=== PATIENT | female | born 1960 | race Caucasian/White ===

== ENCOUNTER 2023-05-30 17:04 | Observation (INO) | payer OTHER ==
[2023-05-30] MEDS ORDERED: Sodium Chloride 0.9% 10 ML Syringe FLUSH PRN (17:22)
[2023-05-30] MEDS ORDERED: Ondansetron 4 MG/2 ML SDV IVPUSH ONE (17:35)
[2023-05-30] MEDS ORDERED: LORazepam 2 MG/ML SDV IVPUSH ONE (17:35)
[2023-05-30 17:45] LABS: BASOPHILS ABSOLUTE AUTO 0.1 x10-3/uL (0.0-0.1); BASOPHILS PERCENT AUTO 0.9 % (0.2-1.5); EOSINOPHILS ABSOLUTE AUTO 0.8 x10-3/uL (0.0-0.8); EOSINOPHILS PERCENT AUTO 8.8 % (0.6-8.1); HEMATOCRIT 41.1 % (34.2-48.2); HEMOGLOBIN 13.8 g/dL (11.4-15.5); LYMPHOCYTES ABSOLUTE AUTO 3.1 x10-3/uL (1.0-4.4); LYMPHOCYTES PERCENT AUTO 33.8 % (18.4-52.1); MEAN CORPUSCULAR HEMOGLOBIN 31.6 pg (23.9-33.9); MEAN CORPUSCULAR HGB CONC 33.6 g/dL (31.9-34.8); MEAN CORPUSCULAR VOLUME 93.9 fL (76.7-100.5); MEAN PLATELET VOLUME 8.1 fL (7.1-12.4); MONOCYTES ABSOLUTE AUTO 1.1 x10-3/uL (0.3-1.0); MONOCYTES PERCENT AUTO 11.7 % (4.4-15.7); NEUTROPHILS ABSOLUTE AUTO 4.1 x10-3/uL (1.5-6.3); NEUTROPHILS PERCENT AUTO 44.8 % (30.8-76.2); PLATELET COUNT,PLT 332 x10(3)uL (151-488); RED BLOOD CELL COUNT 4.38 x10(6)uL (3.60-5.20); RED CELL DISTRIBUTION WIDTH 13.6 % (12.3-16.5); WHITE BLOOD CELL COUNT,WBC 9.1 x10-3/uL (3.0-10.3)
[2023-05-30 17:53] LABS: BLOOD UREA NITROGEN,BUN 23 mg/dL (7-18); BUN/CREATININE RATIO 28.8 (9-20); CALCIUM 9.4 mg/dL (8.6-10.2); CARBON DIOXIDE,CO2 29 mmol/L (21-32); CHLORIDE,CL 102 mmol/L (100-110); CREATININE 0.8 mg/dL (0.55-1.02); ESTIMATED GFR 82 mL/min (>60); GLUCOSE RANDOM 143 mg/dL (80-116); POTASSIUM,K 3.2 mmol/L (3.5-5.3); SODIUM,NA 138 mmol/L (135-145)
[2023-05-30 17:59] LABS: A/G RATIO 1.1; ALANINE AMINOTRANSFERASE,ALT 44 U/L (12-36); ALBUMIN 3.4 g/dL (3.2-4.6); ALKALINE PHOSPHATASE 109 IU/L (56-112); ASPARTATE AMNIOTRANSFERASE,AST 24 IU/L (5-25); BILIRUBIN TOTAL 0.4 mg/dL (0.1-1.3); PROTEIN TOTAL,TP 6.6 g/dL (6.0-8.0)
[2023-05-30 18:06] LABS: INR 0.96 (1.00-1.24); PROTHROMBIN TIME 9.9 sec (9.0-11.1); PTT,PARTIAL THROMBOPLSTIN TIME 23.2 SECONDS (24.4-33.2)
[2023-05-30] MEDS ORDERED: Meclizine 25 MG Tab PO ONE (18:08)
[2023-05-30] MEDS ORDERED: Potassium Chloride 20 MEQ in Premix Bag 1 BAG IV ONE (18:20)
[2023-05-30] MEDS ORDERED: Sennosides/Docusate Sodium 50-8.6 MG Tab PO PRN (19:19)
[2023-05-30] MEDS ORDERED: Acetaminophen 325 MG Tab PO PRN (19:19)
[2023-05-30] MEDS: NS + KCl 20mEq/L 1,000 ML IV SCH (20:26)
[2023-05-30] MEDS: Potassium Chloride 20 MEQ Tab.ER PO SCH ×2 (20:30→22:27)
[2023-05-30] MEDS: Enoxaparin 40 MG/0.4 ML Syringe SUBCUT SCH (20:31)
[2023-05-30] MEDS ORDERED: BUPROPION HCL 200 MG PO SCH (21:00)
[2023-05-30 23:18] LABS: INFLUENZA A NAA NEGATIVE (NEGATIVE); INFLUENZA B NAA NEGATIVE (NEGATIVE); RESPIRATORY SYNCYTIAL VIR NAA NEGATIVE (NEGATIVE)
[2023-05-30 23:35] LABS: CORONAVIRUS COVID-19 NAA NEGATIVE (NEGATIVE)
[2023-05-31] MEDS: Meclizine 25 MG Tab PO PRN ×2 (04:01→13:47)
[2023-05-31] MEDS: NS + KCl 20mEq/L 1,000 ML IV SCH (06:10)
[2023-05-31 06:31] LABS: BASOPHILS PERCENT AUTO 0.7 % (0.2-1.5); EOSINOPHILS ABSOLUTE AUTO 0.5 x10-3/uL (0.0-0.8); EOSINOPHILS PERCENT AUTO 7.6 % (0.6-8.1); HEMATOCRIT 38.2 % (34.2-48.2); HEMOGLOBIN 12.9 g/dL (11.4-15.5); LYMPHOCYTES ABSOLUTE AUTO 1.4 x10-3/uL (1.0-4.4); MEAN CORPUSCULAR HGB CONC 33.8 g/dL (31.9-34.8); MEAN CORPUSCULAR VOLUME 94.7 fL (76.7-100.5); MEAN PLATELET VOLUME 8.1 fL (7.1-12.4); MONOCYTES ABSOLUTE AUTO 0.7 x10-3/uL (0.3-1.0); MONOCYTES PERCENT AUTO 9.7 % (4.4-15.7); NEUTROPHILS ABSOLUTE AUTO 4.2 x10-3/uL (1.5-6.3); PLATELET COUNT,PLT 287 x10(3)uL (151-488); RED BLOOD CELL COUNT 4.03 x10(6)uL (3.60-5.20); RED CELL DISTRIBUTION WIDTH 13.6 % (12.3-16.5); WHITE BLOOD CELL COUNT,WBC 6.9 x10-3/uL (3.0-10.3)
[2023-05-31 06:42] LABS: A/G RATIO 1.1; ALANINE AMINOTRANSFERASE,ALT 41 U/L (12-36); ALBUMIN 3.2 g/dL (3.2-4.6); ALKALINE PHOSPHATASE 92 IU/L (56-112); ASPARTATE AMNIOTRANSFERASE,AST 24 IU/L (5-25); BILIRUBIN TOTAL 0.8 mg/dL (0.1-1.3); BLOOD UREA NITROGEN,BUN 15 mg/dL (7-18); BUN/CREATININE RATIO 18.8 (9-20); CALCIUM 8.8 mg/dL (8.6-10.2); CARBON DIOXIDE,CO2 31 mmol/L (21-32); CHLORIDE,CL 106 mmol/L (100-110); CREATININE 0.8 mg/dL (0.55-1.02); EST CRCL DRUG DOSING (CG) 61.35 mL/min; ESTIMATED GFR 82 mL/min (>60); GLUCOSE RANDOM 102 mg/dL (80-116); POTASSIUM,K 4.2 mmol/L (3.5-5.3); PROTEIN TOTAL,TP 6.2 g/dL (6.0-8.0); SODIUM,NA 140 mmol/L (135-145)
[2023-05-31] MEDS ORDERED: Pantoprazole 40 MG Tab.CR PO SCH (07:30)
[2023-05-31] MEDS ORDERED: Acetaminophen 500 MG Tab PO PRN (08:56)
[2023-05-31] MEDS ORDERED: Magnesium Oxide 400 MG Tab PO SCH (09:00)
[2023-05-31] MEDS ORDERED: Non-Formulary Medication 1 Each (Omeprazole [Omeprazole] 20 MG Capsule.Dr) PO SCH (09:00)
[2023-05-31] MEDS ORDERED: Non-Formulary Medication 1 Each (Diclofenac Sodium [Diclofenac Sodium] 75 MG Tablet.Dr) PO SCH (09:00)
[2023-05-31] MEDS ORDERED: Polyethylene Glycol 3350 Powder 17 GM Packet PO SCH ×2 (09:00→21:00)
[2023-05-31] MEDS ORDERED: Non-Formulary Medication 1 Each (Iron,Carbonyl/Ascorbic Acid [Vitron-C Tablet] 1 EACH Tabl PO SCH (09:00)
[2023-05-31] MEDS ORDERED: Sertraline 50 MG Tab PO SCH ×2 (09:00→21:00)
[2023-05-31] MEDS ORDERED: Hydrochlorothiazide 12.5 MG Cap PO SCH (10:45)
[2023-05-31] MEDS ORDERED: Valsartan 160 MG Tab PO SCH ×2 (11:10→11:45)
[2023-05-31] MEDS ORDERED: Scopalamine 1mg/3day Transdermal Patch TRDERM PRN (16:18)
[2023-05-31] MEDS ORDERED: Ketorolac 30 MG/ML SDV IVPUSH PRN (18:39)
[2023-05-31] MEDS ORDERED: Acetaminophen/oxyCODONE 325-5 MG Tab PO PRN (18:43)
[2023-05-31] MEDS ORDERED: Acetaminophen/oxyCODONE 325-5 MG Tab PO ONE (19:06)
[2023-05-31] MEDS ORDERED: Ondansetron 4 MG/2 ML SDV IVPUSH ONE (19:47)
[2023-05-31] MEDS ORDERED: Sodium Chloride 0.9% 1,000 ML IV SCH (20:00)
[2023-05-31] MEDS ORDERED: Prochlorperazine 10 MG/2 ML SDV IVPUSH ONE (20:08)
[2023-05-31 20:09] LABS: BASOPHILS ABSOLUTE AUTO 0.1 x10-3/uL (0.0-0.1); BASOPHILS PERCENT AUTO 0.6 % (0.2-1.5); EOSINOPHILS ABSOLUTE AUTO 0.4 x10-3/uL (0.0-0.8); EOSINOPHILS PERCENT AUTO 4.1 % (0.6-8.1); HEMATOCRIT 42.2 % (34.2-48.2); HEMOGLOBIN 14.3 g/dL (11.4-15.5); LYMPHOCYTES ABSOLUTE AUTO 2.2 x10-3/uL (1.0-4.4); LYMPHOCYTES PERCENT AUTO 23.8 % (18.4-52.1); MEAN CORPUSCULAR HEMOGLOBIN 31.7 pg (23.9-33.9); MEAN CORPUSCULAR HGB CONC 33.9 g/dL (31.9-34.8); MEAN CORPUSCULAR VOLUME 93.6 fL (76.7-100.5); MEAN PLATELET VOLUME 8.3 fL (7.1-12.4); MONOCYTES ABSOLUTE AUTO 0.8 x10-3/uL (0.3-1.0); MONOCYTES PERCENT AUTO 8.8 % (4.4-15.7); NEUTROPHILS ABSOLUTE AUTO 5.8 x10-3/uL (1.5-6.3); NEUTROPHILS PERCENT AUTO 62.7 % (30.8-76.2); PLATELET COUNT,PLT 335 x10(3)uL (151-488); RED CELL DISTRIBUTION WIDTH 13.8 % (12.3-16.5); WHITE BLOOD CELL COUNT,WBC 9.2 x10-3/uL (3.0-10.3)
[2023-05-31] MEDS: Enoxaparin 40 MG/0.4 ML Syringe SUBCUT SCH (20:10)
[2023-05-31 20:15] LABS: A/G RATIO 1.1; ALANINE AMINOTRANSFERASE,ALT 45 U/L (12-36); ALBUMIN 3.6 g/dL (3.2-4.6); ALKALINE PHOSPHATASE 104 IU/L (56-112); ASPARTATE AMNIOTRANSFERASE,AST 22 IU/L (5-25); BILIRUBIN TOTAL 0.7 mg/dL (0.1-1.3); BLOOD UREA NITROGEN,BUN 12 mg/dL (7-18); BUN/CREATININE RATIO 13.3 (9-20); CALCIUM 9.9 mg/dL (8.6-10.2); CARBON DIOXIDE,CO2 26 mmol/L (21-32); CHLORIDE,CL 101 mmol/L (100-110); CREATININE 0.9 mg/dL (0.55-1.02); EST CRCL DRUG DOSING (CG) 54.53 mL/min; ESTIMATED GFR 71 mL/min (>60); GLUCOSE RANDOM 151 mg/dL (80-116); MAGNESIUM 1.9 mg/dL (1.8-2.5); POTASSIUM,K 3.8 mmol/L (3.5-5.3); SODIUM,NA 136 mmol/L (135-145)
[2023-05-31] MEDS ORDERED: Sodium Chloride 0.9% 500 ML IV ONE (20:18)
== END 2023-05-31 21:00 ==
LOC: FB.ED 17:04 → FB.MS 19:20
PROVIDERS: ADMIT Emergency Medicine; ATTEND Family Medicine
DX: I63.89 Other cerebral infarction (principal); I45.81 Long QT syndrome; G46.4 Cerebellar stroke syndrome; I10 Essential (primary) hypertension; R51.9 Headache, unspecified; E87.6 Hypokalemia; K21.9 Gastro-esophageal reflux disease without esophagitis; F33.1 Major depressive disorder, recurrent, moderate; Z87.891 Personal history of nicotine dependence; Z79.899 Other long term (current) drug therapy; Z88.8 Allergy status to other drugs, medicaments and biological substances; Z88.2 Allergy status to sulfonamides
CPT/HCPCS: 0241U; 36415; 70450; 71045; 80053; 83735; 84484; 85025; 85610; 85730; 93005; 93010; 96365; 96366; 96372; 96375; 96376; 99222; 99233; 99238; 99285; 99285-25; A9270-GY; G0378; J0780; J1650; J2060; J2405; J3360; J3480; J7030; J7040